=== PATIENT | female | born 1970 | race Caucasian/White ===

== ENCOUNTER → 2022-01-17 | Outpatient (CLI) | payer BC | LOC: M WUC 13:09 | PROVIDERS: ATTEND Student in an Organized Health Care Education/Training Program | DX: M25.511 Pain in right shoulder (principal); M25.561 Pain in right knee ==

== ENCOUNTER → 2022-01-26 | Outpatient (CLI) | payer BC | LOC: M WUC 13:00 | PROVIDERS: ATTEND Physician Assistant | DX: M25.571 Pain in right ankle and joints of right foot (principal) ==

== ENCOUNTER → 2022-09-04 | Outpatient (REF) | LOC: M EMP 15:48 | PROVIDERS: ATTEND Family Medicine | DX: Z11.52 Encounter for screening for COVID-19 (principal) ==

== ENCOUNTER → 2022-09-04 | Outpatient (REF) ==
[2022-09-04 14:11] LABS: RSV AMPLIFICATION NEGATIVE (NEGATIVE)
== END ==
LOC: M LABSMTC 10:42
PROVIDERS: ATTEND Family Medicine
DX: Z11.52 Encounter for screening for COVID-19 (principal)

== ENCOUNTER → 2022-11-13 | Outpatient (CLI) | payer BC ==
[2022-11-13 13:10] LABS: BASO # 0.1 10^3/uL (0.0-0.2); BASO % 1.2 % (0.0-1.0); EOS % 15.8 % (0.0-3.0); HEMATOCRIT 42.7 % (36.0-47.0); LYMPH % 31.1 % (24.0-44.0); MEAN CORPUSCULAR HEMOGLOBIN 32.2 pg (27.0-33.0); MEAN CORPUSCULAR HGB CONC 32.8 g/dl (32.0-36.5); MEAN CORPUSCULAR VOLUME 98.2 fl (80.0-96.0); MONO # 0.6 10^3/uL (0.0-0.8); MONO % 9.6 % (2.0-8.0); NEUTROPHILS # 2.7 10^3/uL (1.5-8.5); PLATELET COUNT, AUTOMATED 217 10^3/uL (150-450); RED BLOOD COUNT 4.35 10^6/uL (4.00-5.40); WHITE BLOOD COUNT 6.5 10^3/uL (4.0-10.0)
[2022-11-13 13:15] LABS: C REACTIVE PROTEIN QUANTITATIV < 0.40 MG/DL (<1.0)
[2022-11-13 13:17] LABS: CHOLESTEROL LEVEL 182 MG/DL (<200); CHOLESTEROL RISK RATIO 2.24 (<5); HDL CHOLESTEROL 80.9 MG/DL (>40); LDL CHOLESTEROL 76.3 MG/DL (<100); NON-HDL-C 101.1 MG/DL; RHEUMATOID FACTOR QUANT 4.6 IU/ML (<14); TRIGLYCERIDES LEVEL 124 MG/DL (<150)
[2022-11-13 13:18] LABS: FREE T4 0.76 NG/DL (0.89-1.76); THYROID STIMULATING HORMONE 1.149 uIU/ML (0.55-4.78)
[2022-11-13 13:19] LABS: VITAMIN B12 LEVEL 928 PG/ML (211-911)
[2022-11-13 13:52] LABS: ERYTHROCYTE SEDIMENTATION RATE 7 mm/hr (0-30); HEMOGLOBIN A1c 5.1 % (4.0-6.0)
[2022-11-14 20:07] LABS: ANA (HEP2) Negative (.)
== END ==
LOC: M PLALAB 09:51
PROVIDERS: ATTEND Nurse Practitioner Family
DX: Z13.228 Encounter for screening for other metabolic disorders (principal)

== ENCOUNTER → 2022-11-23 | Outpatient (CLI) | payer BC | LOC: M WHC 06:47 | PROVIDERS: ATTEND Nurse Practitioner Family | DX: Z12.31 Encounter for screening mammogram for malignant neoplasm of breast (principal) ==

== ENCOUNTER → 2024-01-16 | Outpatient (CLI) | payer BC | LOC: M WUC 11:32 | PROVIDERS: ATTEND Nurse Practitioner Family | DX: M79.672 Pain in left foot (principal) ==

== ENCOUNTER → 2025-02-10 | Outpatient (CLI) | payer OTHER | LOC: M WUC 12:48 | PROVIDERS: ATTEND Nurse Practitioner Family | DX: M54.50 Low back pain, unspecified (principal) ==